=== PATIENT | female | born 1945 | race Caucasian/White ===

== ENCOUNTER 2020-08-10 20:38 | Emergency (ER) | payer OTHER ==
[~2020-08-10] VITALS: Ht 172.7 cm; Wt 90.7 kg
== END 2020-08-11 02:18 | disposition home or self-care (01) ==
LOC: ED 20:38
DX: S02.2XXA Fracture of nasal bones, initial encounter for closed fracture (principal); S96.912A Strain of unspecified muscle and tendon at ankle and foot level, left foot, initial encounter; S46.912A Strain of unspecified muscle, fascia and tendon at shoulder and upper arm level, left arm, initial encounter; S00.83XA Contusion of other part of head, initial encounter; S90.32XA Contusion of left foot, initial encounter; M25.462 Effusion, left knee; I10 Essential (primary) hypertension; Z96.641 Presence of right artificial hip joint; K21.9 Gastro-esophageal reflux disease without esophagitis; Z96.652 Presence of left artificial knee joint; Z91.041 Radiographic dye allergy status; Z90.711 Acquired absence of uterus with remaining cervical stump; Z90.49 Acquired absence of other specified parts of digestive tract; W10.8XXA Fall (on) (from) other stairs and steps, initial encounter; Y93.89 Activity, other specified; Y92.098 Other place in other non-institutional residence as the place of occurrence of the external cause; Y99.8 Other external cause status